=== PATIENT | male | born 1990 | race African-American/Black ===

== ENCOUNTER 2016-09-11 22:00 | Emergency (ER) | payer OTHER ==
[~2016-09-11] VITALS: Ht 177.8 cm; Wt 109.0 kg
[2016-09-11 22:03] VITALS: BP 147/89
== END 2016-09-11 23:59 | disposition left against medical advice (07) ==
LOC: ER 23:09
DX: R20.0 Anesthesia of skin (principal); Z53.21 Procedure and treatment not carried out due to patient leaving prior to being seen by health care provider